=== PATIENT | female | born 1980 ===

== ENCOUNTER 2018-12-06 09:41 | Emergency (ER) | payer OTHER ==
[2018-12-06 09:48] VITALS: BMI 36.8
[2018-12-06 09:49] VITALS: O2SAT 99
--- NOTE | 2018-12-06 10:22 | ED PDOC ---
HPI: CCC, URI, Sore Throat Time Seen by Provider: 12/06/18 09:49 Chief Complaint (Provider): Cough and congestion History Per: Patient History/Exam Limitations: no limitations Onset/Duration Of Symptoms: Days (x1 month) Current Symptoms Are (Timing): Still Present Associated Symptoms: Cough, Nasal Congestion. denies: Fever, Chills, Nausea, Vomiting Additional Complaint(s): Cherelle Villafana is a 38 year old female, with no significant past medical history, who presents to the emergency department complaining of cough and congestion ongoing for x1 month. Patient also reports a chest pain with cough. She denies any fever, chills, shortness of breath, nausea, vomit or other medical complaints. PMD: None provided. Past Medical History Reviewed: Historical Data, Nursing Documentation, Vital Signs Vital Signs: Last Vital Signs Temp 98.7 F 12/06/18 09:48 Pulse 72 12/06/18 09:48 Resp 16 12/06/18 09:48 BP 115/76 12/06/18 09:48 Pulse Ox 99 12/06/18 09:48 - Medical History PMH: No Chronic Diseases - Surgical History Surgical History: No Surg Hx - Family History Family History: States: Unknown Family Hx - Home Medications Home Medications: Ambulatory Orders Medication Instructions Recorded Albuterol HFA [Ventolin HFA 90 2 puff IH Q4H #1 puff 12/06/18 mcg/actuation (8 g)] Azithromycin [Zithromax] 250 mg PO DAILY #6 tab 12/06/18 Benzonatate [Tessalon Perle] 100 mg PO Q8 #12 capsule 12/06/18 Methylprednisolone [Medrol Dose 4 mg PO DAILY #21 tab 12/06/18 Pack (21 tabs)] - Allergies Allergies/Adverse Reactions: Allergies Allergy/AdvReac Type Severity Reaction Status Date / Time Unobtainable Allergy Verified 12/06/18 10:19 Review of Systems ROS Statement: Except As Marked, All Systems Reviewed And Found Negative Constitutional: Negative for: Fever, Chills ENT: Positive for: Nose Congestion Cardiovascular: Positive for: Chest Pain Respiratory: Positive for: Cough. Negative for: Shortness of Breath Gastrointestinal: Negative for: Nausea, Vomiting Physical Exam - Reviewed Nursing Documentation Reviewed: Yes Vital Signs Reviewed: Yes - Physical Exam Appears: Positive for: No Acute Distress Head Exam: Positive for: ATRAUMATIC, NORMAL INSPECTION, NORMOCEPHALIC Skin: Positive for: Normal Color, Warm, Dry Eye Exam: Positive for: Normal appearance, EOMI, PERRL Neck: Positive for: Normal, Painless ROM, Supple Cardiovascular/Chest: Positive for: Regular Rate, Rhythm. Negative for: Murmur Respiratory: Positive for: Rhonchi (scattered). Negative for: Wheezing, Respiratory Distress Gastrointestinal/Abdominal: Positive for: Normal Exam, Soft. Negative for: Tenderness Back: Positive for: Normal Inspection. Negative for: L CVA Tenderness, R CVA Tenderness, Vertebral Tenderness Extremity: Positive for: Normal ROM (upper and lower extremities). Negative for: Tenderness, Deformity Neurologic/Psych: Positive for: Alert, Oriented - ECG O2 Sat by Pulse Oximetry: 99 (RA) Pulse Ox Interpretation: Normal Medical Decision Making Medical Decision Making: Time: 09:49 Initial Impression: Chest x-ray to r/o PNA Initial Plan: --Chest two views (PA/LAT) [RAD] --Reevaluation Scribe Attestation: Documented by Phong Concepcion, acting as a scribe for Dilan Harman MD Provider Scribe Attestation: All medical record entries made by the Scribe were at my direction and personally dictated by me. I have reviewed the chart and agree that the record accurately reflects my personal performance of the history, physical exam, medical decision making, and the department course for this patient. I have also personally directed, reviewed, and agree with the discharge instructions and disposition. Disposition - Clinical Impression Clinical Impression: Bronchitis - Patient ED Disposition Is Patient to be Admitted: No Counseled Patient/Family Regarding: Studies Performed, Diagnosis, Need For Followup, Rx Given - Disposition Referrals: [facility] [Outside] Disposition: Routine/Home Disposition Time: 11:04 Condition: FAIR Prescriptions: Albuterol HFA [Ventolin HFA 90 mcg/actuation (8 g)] 2 puff IH Q4H #1 puff Azithromycin [Zithromax] 250 mg PO DAILY #6 tab Benzonatate [Tessalon Perle] 100 mg PO Q8 #12 capsule Methylprednisolone [Medrol Dose Pack (21 tabs)] 4 mg PO DAILY #21 tab Instructions: Chronic Bronchitis
[2018-12-06 12:30] VITALS: BP 107/64; PULSE 76; RESP 15; TEMP 98.6
--- NOTE | 2018-12-06 13:55 | RAD ---
Date of service: 12/06/2018 HISTORY: Cough, chest pain. COMPARISON: No prior. TECHNIQUE: Chest PA and lateral FINDINGS: LUNGS: No active pulmonary disease. PLEURA: No significant pleural effusion identified. No pneumothorax apparent. CARDIOVASCULAR: No aortic atherosclerotic calcification present. Normal cardiac size. No pulmonary vascular congestion. OSSEOUS STRUCTURES: No significant abnormalities. VISUALIZED UPPER ABDOMEN: Normal. OTHER FINDINGS: None. IMPRESSION: No active disease.
== END 2018-12-06 11:10 | disposition home or self-care (01) ==
LOC: H.ER 09:41 → MERGE 09:41 → H.ER 11:10
DX: J40 Bronchitis, not specified as acute or chronic (principal)

== ENCOUNTER 2018-12-16 09:41 | Emergency (ER) | payer OTHER ==
[2018-12-16 09:41] VITALS: BMI 36.8
[2018-12-16 09:54] VITALS: BP 112/79; PULSE 82; RESP 18; TEMP 99; O2SAT 97
[2018-12-16] MEDS ORDERED: Sodium Chloride 0.9% 1,000 ML IV STA (10:33)
--- NOTE | 2018-12-16 10:37 | ED PDOC ---
HPI: General Adult Time Seen by Provider: 12/16/18 10:32 Chief Complaint (Nursing): GI Problem Chief Complaint (Provider): vomiting/diarrhea History Per: Patient (38 y/o female here with vomiting and diarrhea multiple episodes x 2 days. Notes fever 2 days ago. Has h/o gastric sleeve 2 years ago. Has had recent ED visit and given zithromax/medrol dose pack for bronchitis.) Past Medical History Reviewed: Historical Data, Nursing Documentation, Vital Signs Vital Signs: Last Vital Signs Temp 99 F 12/16/18 09:52 Pulse 82 12/16/18 09:52 Resp 18 12/16/18 09:52 BP 112/79 12/16/18 09:52 Pulse Ox 97 12/16/18 09:52 - Medical History PMH: Bronchitis - Family History Family History: States: Unknown Family Hx - Immunization History Hx Tetanus Toxoid Vaccination: No Hx Influenza Vaccination: No Hx Pneumococcal Vaccination: No - Home Medications Home Medications: Ambulatory Orders Medication Instructions Recorded Azithromycin [Zithromax] 1 tab PO DAILY #6 tab 03/26/16 Naproxen 1 tab PO BID #14 tab 03/26/16 Promethazine HCl/Codeine 5 ml PO Q12 PRN #100 ml 03/26/16 [Promethazine HCl-Codeine Phosphate 10 mg/5 ml] Albuterol HFA [Ventolin HFA 90 2 puff IH Q4H #1 puff 12/06/18 mcg/actuation (8 g)] Azithromycin [Zithromax] 250 mg PO DAILY #6 tab 12/06/18 Benzonatate [Tessalon Perle] 100 mg PO Q8 #12 capsule 12/06/18 Methylprednisolone [Medrol Dose 4 mg PO DAILY #21 tab 12/06/18 Pack (21 tabs)] Famotidine [Pepcid] 20 mg PO BID #10 tab 12/16/18 Ondansetron ODT [Zofran ODT] 4 mg PO Q8 PRN #5 odt 12/16/18 - Allergies Allergies/Adverse Reactions: Allergies Allergy/AdvReac Type Severity Reaction Status Date / Time No Known Allergies Allergy Verified 12/07/18 12:16 Review of Systems ROS Statement: Except As Marked, All Systems Reviewed And Found Negative Physical Exam - Reviewed Nursing Documentation Reviewed: Yes Vital Signs Reviewed: Yes - Physical Exam Appears: Positive for: Well, Non-toxic, No Acute Distress Head Exam: Positive for: ATRAUMATIC, NORMAL INSPECTION, NORMOCEPHALIC Skin: Positive for: Normal Color, Warm, DRY Eye Exam: Positive for: EOMI, Normal appearance, PERRL ENT: Positive for: Normal ENT Inspection Neck: Positive for: Normal, Painless ROM Cardiovascular/Chest: Positive for: Regular Rate, Rhythm Respiratory: Positive for: CNT, Normal Breath Sounds Gastrointestinal/Abdominal: Positive for: Normal Exam, Soft, Tenderness (epigastric tenderness) Back: Positive for: Normal Inspection Extremity: Positive for: Normal ROM Neurologic/Psych: Positive for: Alert, Oriented - Laboratory Results Result Diagrams: 12/16/18 10:45 12/16/18 10:45 Urine POC: Negative - ECG O2 Sat by Pulse Oximetry: 97 - Progress ED Course And Treament: Pepcid 20 mg iv x 1 dose Zofran 4 mg iv x 1 dose NS 1 liter 500ml per hour x 1 liter Disposition - Clinical Impression Clinical Impression: Gastroenteritis - Patient ED Disposition Is Patient to be Admitted: No - Disposition Referrals: Werner Andres MD [Primary Care Provider] - Disposition: Routine/Home Disposition Time: 12:00 Condition: FAIR Prescriptions: Famotidine [Pepcid] 20 mg PO BID #10 tab Ondansetron ODT [Zofran ODT] 4 mg PO Q8 PRN #5 odt PRN Reason: Nausea/Vomiting Instructions: Viral Gastroenteritis, Adult (DC) Forms: [facility] ED School/Work Excuse
[2018-12-16 11:07] LABS: BASO # 0.1 K/uL (0.0-0.2); BASO % 0.7 % (0.0-2.0); EOS # 0.1 K/uL (0.0-0.7); EOS % 1.5 % (0.0-4.0); HEMOGLOBIN 12.2 g/dL (12.0-16.0); LYMPH # 1.1 K/uL (1.0-4.3); LYMPH % 15.1 % (20.0-40.0); MEAN CELL VOLUME 76.4 fl (81.0-99.0); MEAN CORPUSCULAR HEMOGLOBIN 24.4 pg (27.0-31.0); MEAN CORPUSCULAR HGB CONC 31.9 g/dL (33.0-37.0); MEAN PLATELET VOLUME 9.1 fl (7.2-11.7); MONO # 0.8 K/uL (0.0-0.8); MONO % 11.2 % (0.0-10.0); NEUT # 5.4 K/uL (1.8-7.0); NEUT % 71.5 % (50.0-75.0); NRBC % 0.1 % (0.0-0.0); RBC 5.01 Mil/uL (3.80-5.20); RED CELL DISTRIBUTION WIDTH 15.6 % (11.5-14.5); WHITE BLOOD COUNT 7.5 K/uL (4.8-10.8)
[2018-12-16 11:14] LABS: ALB/GLOB RATIO 1.2 (1.0-2.1); ALBUMIN 4.3 g/dL (3.5-5.0); ALT/SGPT 24 U/L (9-52); AST/SGOT 20 U/L (14-36); BLOOD UREA NITROGEN 15 mg/dl (7-17); CALCIUM 9.4 mg/dL (8.4-10.2); GFR NON-AFRICAN AMERICAN > 60; LIPASE 75 U/L (23-300)
== END 2018-12-16 12:45 | disposition home or self-care (01) ==
LOC: SUPCPDRO 09:41 → H.ER 09:41
DX: K52.9 Noninfective gastroenteritis and colitis, unspecified (principal)
CPT/HCPCS: 80053; 81025; 83690; 83735; 85025; 87804; 96374; 96375; 99284; J2405; J7030